=== PATIENT | female | born 1930 | race Caucasian/White ===

== ENCOUNTER 2018-09-18 12:29 | Inpatient (IN) | payer MEDICAID, OTHER ==
[2018-09-18 13:49] LABS: ADD MAN DIFF? NO
[2018-09-18 13:54] LABS: WHITE BLOOD COUNT 7.1 10^3/ul (4.8-10.8)
[2018-09-18 13:54] LABS: BASOPHILS % 0.3 % (0.0-2.0); EOSINOPHILS # 0.1 10^3/ul (0.0-0.5); EOSINOPHILS % 1.3 % (0.0-7.0); HEMATOCRIT 38.2 % (37.0-47.0); HEMOGLOBIN 12.4 g/dl (12.0-16.0); LYMPHOCYTES # 2.1 10^3/ul (0.8-2.9); LYMPHOCYTES % 29.6 % (15.0-51.0); MEAN CORPUSCULAR HEMOGLOBIN 28.9 pg (29.0-33.0); MEAN CORPUSCULAR HGB CONC 32.5 g/dl (32.0-37.0); MEAN PLATELET VOLUME 11.3 fl (7.4-10.4); MONOCYTE # 0.5 10^3/ul (0.3-0.9); MONOCYTES % 7.3 % (0.0-11.0); NEUTROPHIL # 4.4 10^3/ul (1.6-7.5); NEUTROPHILS % 61.2 % (39.0-77.0); PLATELET COUNT 156 10^3/UL (140-415); RED BLOOD COUNT 4.29 10^6/ul (4.20-5.40); RED CELL DISTRIBUTION WIDTH 14.8 % (11.5-14.5)
[2018-09-18 14:10] LABS: ALANINE AMINOTRANSFERASE 55 IU/L (13-69); ALBUMIN 3.6 g/dl (3.3-4.9); ALBUMIN/GLOBULIN RATIO 1.28; ALKALINE PHOSPHATASE 117 IU/L (42-121); ANION GAP 9 (5-13); ASPARTATE AMINO TRANSFERASE 58 IU/L (15-46); BILIRUBIN,INDIRECT 0.3 mg/dl (0-1.1); BILIRUBIN,TOTAL 0.3 mg/dl (0.2-1.3); BLOOD UREA NITROGEN 32 mg/dl (7-20); CALCIUM 8.9 mg/dl (8.4-10.2); CARBON DIOXIDE 24 mmol/L (21-31); CHLORIDE 108 mmol/L (97-110); CREATININE 1.14 mg/dl (0.44-1.00); GLUCOSE 174 mg/dl (70-220); POTASSIUM 3.5 mmol/L (3.5-5.1); SODIUM 141 mmol/L (135-144); TOTAL PROTEIN 6.4 g/dl (6.1-8.1)
[2018-09-18 14:22] LABS: B-TYPE NATRIURETIC PEPTIDE 3690 PG/ML (0-450); TROPONIN-I < 0.012 ng/ml (0.000-0.120)
[2018-09-18] MEDS: FUROSEMIDE 20 MG INJ IV (15:45)
[2018-09-18 15:59] LABS: INR 0.98; PROTIME 13.1 Sec (11.9-14.9)
[2018-09-18 16:00] LABS: PARTIAL THROMBOPLASTIN TIME 27.9 Sec (23.0-35.0)
[2018-09-18] MEDS ORDERED: DOCUSATE SODIUM 100 MG CAP PO (16:00)
[2018-09-18] MEDS ORDERED: NA PHOSPHATE/BIPHOS 133 ML ENEMA PR (16:00)
[2018-09-18] MEDS ORDERED: ALBUTEROL/IPRATROPIUM (NEB) 3 ML AMP HHN (16:00)
[2018-09-18] MEDS ORDERED: NITROGLYCERIN (SL) 0.4 MG TAB SL (16:00)
[2018-09-18] MEDS ORDERED: morphine 2 MG INJ IV (16:00)
[2018-09-18] MEDS ORDERED: LORAZEPAM 2 MG INJ IV (16:00)
[2018-09-18] MEDS ORDERED: ACETAMINOPHEN 325 MG TAB PO (16:00)
[2018-09-18] MEDS ORDERED: HYDROCODONE/APAP (5/325) TAB PO (16:00)
[2018-09-18] MEDS ORDERED: ONDANSETRON 4 MG INJ IV (16:00)
[2018-09-18] MEDS ORDERED: MAGNESIUM HYDROXIDE 30ML CUP PO (16:00)
[2018-09-18] MEDS ORDERED: NACL 0.9% 3 ML SYG IV (16:00)
[2018-09-18 16:26] LABS: FREE T4 (FREE THYROXINE) 1.38 ng/dl (0.85-1.93)
[2018-09-18] MEDS: POTASSIUM CHLORIDE (SR) 20 MEQ TAB PO (18:39)
[2018-09-18 20:42] LABS: CREATINE KINASE 57 IU/L (23-200)
[2018-09-18 20:43] LABS: MAGNESIUM 1.8 mg/dl (1.7-2.5)
[2018-09-18 20:56] LABS: CK INDEX 1.1
[2018-09-18] MEDS: METOPROLOL 100 MG TAB PO (21:00)
[2018-09-18] MEDS: GABAPENTIN 300 MG CAP PO (21:46)
[2018-09-18] MEDS: ATORVASTATIN 10 MG TAB PO (21:46)
[2018-09-19 01:42] LABS: CREATINE KINASE 55 IU/L (23-200)
[2018-09-19 01:55] LABS: CK INDEX 1.1; CK-MB 0.61 ng/ml (0.0-2.4); TROPONIN-I < 0.012 ng/ml (0.000-0.120)
[2018-09-19 06:16] LABS: ADD MAN DIFF? NO
[2018-09-19 06:30] LABS: WHITE BLOOD COUNT 5.6 10^3/ul (4.8-10.8)
[2018-09-19 06:30] LABS: BASOPHILS % 0.5 % (0.0-2.0); EOSINOPHILS # 0.1 10^3/ul (0.0-0.5); EOSINOPHILS % 2.2 % (0.0-7.0); HEMATOCRIT 36.5 % (37.0-47.0); HEMOGLOBIN 11.7 g/dl (12.0-16.0); LYMPHOCYTES # 2.2 10^3/ul (0.8-2.9); LYMPHOCYTES % 39.5 % (15.0-51.0); MEAN CORPUSCULAR HEMOGLOBIN 28.2 pg (29.0-33.0); MEAN CORPUSCULAR HGB CONC 32.1 g/dl (32.0-37.0); MEAN PLATELET VOLUME 11.2 fl (7.4-10.4); MONOCYTE # 0.5 10^3/ul (0.3-0.9); MONOCYTES % 9.5 % (0.0-11.0); NEUTROPHIL # 2.7 10^3/ul (1.6-7.5); NEUTROPHILS % 47.9 % (39.0-77.0); PLATELET COUNT 152 10^3/UL (140-415); RED BLOOD COUNT 4.15 10^6/ul (4.20-5.40); RED CELL DISTRIBUTION WIDTH 14.9 % (11.5-14.5)
[2018-09-19 06:50] LABS: CHOLESTEROL 147 mg/dl (100-200)
[2018-09-19 06:50] LABS: CHOL/HDL RATIO 3.6 RATIO; HDL CHOLESTEROL 40 mg/dl (33-92); LDL CHOLESTEROL,CALCULATED 84 mg/dl; TRIGLYCERIDES 116 mg/dl (0-149)
[2018-09-19 06:51] LABS: ANION GAP 7 (5-13); BLOOD UREA NITROGEN 29 mg/dl (7-20); CALCIUM 8.3 mg/dl (8.4-10.2); CARBON DIOXIDE 28 mmol/L (21-31); CHLORIDE 106 mmol/L (97-110); CREATININE 1.07 mg/dl (0.44-1.00); GLUCOSE 131 mg/dl (70-220); MAGNESIUM 1.7 mg/dl (1.7-2.5); PHOSPHORUS 4.2 mg/dl (2.5-4.9); POTASSIUM 3.8 mmol/L (3.5-5.1); SODIUM 141 mmol/L (135-144)
[2018-09-19 07:11] LABS: HEMOGLOBIN A1C 6.8 % (0-5.9)
[2018-09-19 07:21] LABS: THYROID STIMULATING HORMONE 0.917 MIU/L (0.465-4.680)
[2018-09-19] MEDS: HYDROCHLOROTHIAZIDE 25 MG TAB PO ×2 (08:45→09:09)
[2018-09-19] MEDS: CALCIUM/VITAMIN D (500/200) TAB PO ×2 (08:46→09:09)
[2018-09-19] MEDS: METOPROLOL 100 MG TAB PO ×3 (08:46→21:21)
[2018-09-19] MEDS: LISINOPRIL 20 MG TAB PO ×2 (08:46→09:09)
[2018-09-19] MEDS: GABAPENTIN 300 MG CAP PO ×3 (08:46→21:18)
[2018-09-19] MEDS: FUROSEMIDE 20 MG TAB PO ×2 (08:46→09:09)
[2018-09-19] MEDS ORDERED: INFLUENZA VIRUS VACCINE 0.5 ML (DISPENSING) IM* (09:00)
[2018-09-19] MEDS: SOD CHLORIDE 0.9% 1,000 ML IV ×2 (09:08→21:21)
[2018-09-19] MEDS ORDERED: BUPIVACAINE 0.5% (SDV) 30 ML INJ ×2 (15:41→15:49)
[2018-09-19] MEDS ORDERED: LIDOCAINE 2% (MDV) 20 ML INJ ×2 (15:42→15:49)
[2018-09-19] MEDS ORDERED: SOD CHLORIDE 0.9% 500 ML (15:42)
[2018-09-19] MEDS ORDERED: CEFAZOLIN 1 GM/50 ML (PMX) 50 ML IVPB (15:48)
[2018-09-19] MEDS ORDERED: FENTAnyl 50 MCG/ML VIAL (15:53)
[2018-09-19] MEDS ORDERED: MIDAZOLAM 1 MG/ML 2 ML INJ (15:53)
[2018-09-19] MEDS ORDERED: EPHEDrine SULFATE 50 MG/5 ML SYG (15:54)
[2018-09-19] MEDS ORDERED: LIDOCAINE 2% (SDV) 5 ML INJ (15:55)
[2018-09-19] MEDS ORDERED: PROPOFOL 0 ML (15:55)
[2018-09-19] MEDS ORDERED: POLYMYXIN/BACITRACIN 1L IRRIG IRR (16:00)
[2018-09-19] MEDS ORDERED: DIPHENHYDRAMINE 50 MG INJ IV (17:30)
[2018-09-19] MEDS: hydrALAzine 20 MG INJ IV (17:30)
[2018-09-19] MEDS ORDERED: FENTAnyl 50 MCG/ML VIAL IV (17:30)
[2018-09-19] MEDS ORDERED: ONDANSETRON 4 MG INJ IV (17:30)
[2018-09-19] MEDS: ATORVASTATIN 10 MG TAB PO (21:18)
[2018-09-20] MEDS: SOD CHLORIDE 0.9% 1,000 ML IV (05:00)
[2018-09-20 06:41] LABS: ADD MAN DIFF? NO
[2018-09-20 06:44] LABS: WHITE BLOOD COUNT 5.7 10^3/ul (4.8-10.8)
[2018-09-20 06:44] LABS: BASOPHILS % 0.4 % (0.0-2.0); EOSINOPHILS # 0.1 10^3/ul (0.0-0.5); EOSINOPHILS % 1.9 % (0.0-7.0); HEMATOCRIT 36.5 % (37.0-47.0); HEMOGLOBIN 11.8 g/dl (12.0-16.0); LYMPHOCYTES # 1.8 10^3/ul (0.8-2.9); LYMPHOCYTES % 32.4 % (15.0-51.0); MEAN CORPUSCULAR HEMOGLOBIN 28.4 pg (29.0-33.0); MEAN CORPUSCULAR HGB CONC 32.3 g/dl (32.0-37.0); MEAN PLATELET VOLUME 10.9 fl (7.4-10.4); MONOCYTE # 0.5 10^3/ul (0.3-0.9); NEUTROPHIL # 3.2 10^3/ul (1.6-7.5); NEUTROPHILS % 55.9 % (39.0-77.0); PLATELET COUNT 165 10^3/UL (140-415); RED BLOOD COUNT 4.15 10^6/ul (4.20-5.40)
[2018-09-20 07:14] LABS: ANION GAP 9 (5-13); BLOOD UREA NITROGEN 25 mg/dl (7-20); CALCIUM 8.5 mg/dl (8.4-10.2); CARBON DIOXIDE 27 mmol/L (21-31); CHLORIDE 106 mmol/L (97-110); CREATININE 1.03 mg/dl (0.44-1.00); GLUCOSE 115 mg/dl (70-220); POTASSIUM 3.2 mmol/L (3.5-5.1); SODIUM 142 mmol/L (135-144)
[2018-09-20] MEDS: HYDROCHLOROTHIAZIDE 25 MG TAB PO (09:06)
[2018-09-20] MEDS: CALCIUM/VITAMIN D (500/200) TAB PO (09:06)
[2018-09-20] MEDS: GABAPENTIN 300 MG CAP PO ×2 (09:06→12:52)
[2018-09-20] MEDS: LISINOPRIL 20 MG TAB PO (09:06)
[2018-09-20] MEDS: METOPROLOL 100 MG TAB PO (09:07)
[2018-09-20] MEDS: FUROSEMIDE 20 MG TAB PO (09:07)
[2018-09-20] MEDS: POTASSIUM CHLORIDE (SR) 20 MEQ TAB PO (12:52)
== END 2018-09-20 15:57 | disposition home or self-care (01) | DRG 258 ==
LOC: E/R 12:29 → 6WM 15:39
PROC: 0JH606Z Insertion of Pacemaker, Dual Chamber into Chest Subcutaneous Tissue and Fascia, Open Approach (ICD-10-PCS; principal; 2018-09-19 15:30)
PROC: 0JPT0PZ Removal of Cardiac Rhythm Related Device from Trunk Subcutaneous Tissue and Fascia, Open Approach (ICD-10-PCS; 2018-09-19 15:30)
DX: I44.2 Atrioventricular block, complete (principal); I50.43 Acute on chronic combined systolic (congestive) and diastolic (congestive) heart failure; I11.0 Hypertensive heart disease with heart failure; E78.00 Pure hypercholesterolemia, unspecified; N28.9 Disorder of kidney and ureter, unspecified; R00.1 Bradycardia, unspecified; R42 Dizziness and giddiness; Z45.010 Encounter for checking and testing of cardiac pacemaker pulse generator [battery]; Z85.038 Personal history of other malignant neoplasm of large intestine; Z90.49 Acquired absence of other specified parts of digestive tract
CPT/HCPCS: 33213; 33264; 36415; 71045; 80048; 80053; 80061; 82550; 82553; 83036; 83735; 83880; 84100; 84439; 84443; 84484; 85025; 85610; 85730; 90686; 92610; 93005; 93306; 97161; 97167; 99285-25